=== PATIENT | female | born 1990 | race Caucasian/White ===

== ENCOUNTER 2017-10-05 00:55 | Emergency (ER) | payer MEDICAID, OTHER ==
[2017-10-05] MEDS ORDERED: NORMAL SALINE 1000 ML 1,000 ML IV ONE ×2 (02:41→02:42)
--- NOTE | 2017-10-05 02:43 | ER Document Report ---
ED GI/ - General Chief Complaint: Nausea/Vomiting Stated Complaint: VOMITING,DIARRHEA,ABDOMINAL CRAMPING,15 WKS Time Seen by Provider: 10/05/17 02:35 Notes: Patient is a 27-year-old female, at 15 weeks gestation by first trimester ultrasound, the [facility] emergency department for chief complaint of vomiting and diarrhea. Symptoms started at 6 PM, she states she has had persistent vomiting and diarrhea. She denies fever, she denies any obvious sick contacts, suspicious foods, or recent travel. She does report some abdominal cramping in the mid abdomen but denies any vaginal bleeding. She takes no daily medications. She denies any surgeries. TRAVEL OUTSIDE OF THE [place] IN LAST 30 DAYS: No - Related Data Allergies/Adverse Reactions: No Known Allergies Allergy (Verified 04/11/16 14:54) Past Medical History - General Information source: Patient - Social History Smoking Status: Never Smoker Frequency of alcohol use: None Drug Abuse: None Lives with: Family Family History: Reviewed & Not Pertinent - Medical History Medical History: Negative Surgical Hx: Negative - Immunizations Immunizations up to date: Yes Hx Diphtheria, Pertussis, Tetanus Vaccination: Yes Review of Systems - Review of Systems Constitutional: No symptoms reported EENT: No symptoms reported Cardiovascular: No symptoms reported Respiratory: No symptoms reported Gastrointestinal: See HPI Genitourinary: No symptoms reported Female Genitourinary: See HPI Musculoskeletal: No symptoms reported Skin: No symptoms reported Hematologic/Lymphatic: No symptoms reported Neurological/Psychological: No symptoms reported Physical Exam - Vital signs Vitals: Temp Pulse Resp BP Pulse Ox 98.1 F 88 20 121/69 98 10/05/17 02:07 10/05/17 02:07 10/05/17 02:07 10/05/17 02:07 10/05/17 02:07 Interpretation: Normal - General General appearance: Appears well In distress: None - HEENT Head: Normocephalic, Atraumatic Eyes: Normal Eyelashes: Normal Pupils: PERRL Mucous membranes: Dry Pharynx: Normal Neck: Normal - Respiratory Respiratory status: No respiratory distress Chest status: Nontender Breath sounds: Normal Chest palpation: Normal - Cardiovascular Rhythm: Regular. No: Tachycardia Heart sounds: Normal auscultation, S1 appreciated, S2 appreciated Murmur: No Normal capillary refill: Yes - Abdominal Inspection: Normal Distension: No distension Bowel sounds: Normal Tenderness: Tender - There is minimal generalized tenderness over the abdomen, nonspecific, no guarding, no rigidity, no rebound tenderness Organomegaly: No organomegaly - Back Back: Normal, Nontender - Extremities General upper extremity: Normal inspection, Nontender, Normal color, Normal ROM , Normal temperature General lower extremity: Normal inspection, Nontender, Normal color, Normal ROM , Normal temperature, Normal weight bearing. No: Leydi's sign - Neurological Neuro grossly intact: Yes Cognition: Normal Orientation: AAOx4 [place] Coma Scale Eye Opening: Spontaneous [place] Coma Scale Verbal: Oriented [place] Coma Scale Motor: Obeys Commands [place] Coma Scale Total: 15 Speech: Normal Motor strength normal: LUE, RUE, LLE, RLE Sensory: Normal - Psychological Associated symptoms: Normal affect, Normal mood - Skin Skin Temperature: Warm Skin Moisture: Dry Skin Color: Normal Course - Re-evaluation Re-evalutation: Patient is alert and well-appearing. She does have dry mucous membranes. Minimal generalized tenderness of the abdomen, no guarding, exam does not suggest acute abdomen. Chemistry is unremarkable, urine shows ketones and elevated specific gravity but no infection. Patient does not have any bleeding, ultrasound was performed at bedside showing very active baby with heart rate approximately in the 140s. Presentation is not consistent with abruption. After IV fluids patient states she feels much better, she is tolerating fluids by mouth, discussed workup. Patient states she is ready to go home. Patient declined nausea medication, she does not like taking medications especially while . Discussed follow-up and return precautions, patient states understanding and agreement. - Vital Signs Vital signs: Temp Pulse Resp BP Pulse Ox 98.1 F 88 20 121/69 98 10/05/17 02:07 10/05/17 02:07 10/05/17 02:07 10/05/17 02:07 10/05/17 02:07 - Laboratory Result Diagrams: 10/05/17 03:25 Laboratory results interpreted by me: 10/05/17 10/05/17 03:02 03:25 Creatinine 0.44 L Total Protein 5.8 L Urine Protein 30 H Urine Ketones 100 H Discharge - Discharge Clinical Impression: Vomiting and diarrhea, Dehydration Condition: Stable Disposition: HOME, SELF-CARE Additional Instructions: Your workup indicates dehydration but no other concerning abnormalities are noted. This is most likely viral and should pass. You have been rehydrated, you may need [id number]-[id number] remedies such as Pepcid for your stomach or Benadryl to help you relax or reduce nausea. Continue rehydration at home. Return if you worsen including returned or worsening vomiting, passing out, abdominal pain, fever, or any other concerning or worsening symptoms. Referrals: RAYMUNDO MACHUCA MD [Primary Care Provider] - Follow up as needed
[2017-10-05 03:41] LABS: AMORPHOUS SEDIMENT,URINE TRACE /HPF
[2017-10-05 03:53] LABS: APPEARANCE,URINE CLEAR; BILIRUBIN,URINE NEGATIVE (NEGATIVE); COLOR,URINE AMBER; GLUCOSE, URINE NEGATIVE (NEGATIVE); KETONES,URINE 100 mg/dL (NEGATIVE); LEUKOCYTE ESTERASE,URINE NEGATIVE (NEGATIVE); NITRITE,URINE NEGATIVE (NEGATIVE); PROTEIN,URINE 30 mg/dL (NEGATIVE); URINE SPECIFIC GRAVITY 1.034; UROBILINOGEN,URINE NEGATIVE mg/dL (<2.0)
[2017-10-05 04:06] LABS: ALANINE AMINOTRANSFERASE 28 U/L (9-52); ALBUMIN 3.5 g/dL (3.5-5.0); ALKALINE PHOSPHATASE 58 U/L (38-126); ANION GAP 10 (5-19); ASPARTATE AMINO TRANSFERASE 16 U/L (14-36); BILIRUBIN,DIRECT 0.1 mg/dL (0.0-0.4); BILIRUBIN,TOTAL 0.4 mg/dL (0.2-1.3); BLOOD UREA NITROGEN 12 mg/dL (7-20); CALCIUM 8.9 mg/dL (8.4-10.2); CARBON DIOXIDE 24 mmol/L (22-30); CHLORIDE 103 mmol/L (98-107); GLUCOSE 107 mg/dL (75-110); POTASSIUM 3.9 mmol/L (3.6-5.0); SODIUM 137.4 mmol/L (137-145); TOTAL PROTEIN 5.8 g/dL (6.3-8.2)
[2017-10-05 06:00] VITALS: BP 118/68
== END 2017-10-05 06:00 | disposition home or self-care (01) ==
LOC: ER 00:55
DX: O21.9 Vomiting of pregnancy, unspecified (principal); O26.892 Other specified pregnancy related conditions, second trimester; R19.7 Diarrhea, unspecified; R10.9 Unspecified abdominal pain; O99.282 Endocrine, nutritional and metabolic diseases complicating pregnancy, second trimester; E86.0 Dehydration; Z3A.15 15 weeks gestation of pregnancy; R10.817 Generalized abdominal tenderness
CPT/HCPCS: 99283; 96360; 96361; 36415; 80053; 81001; J7030

== ENCOUNTER 2017-10-09 09:09 | Observation (INO) | payer MEDICAID ==
[2017-10-09] MEDS ORDERED: DEXTROSE 50%-WATER 25 GM/50 ML DISP.SYRIN IV PRN ×2 (09:39)
[2017-10-09] MEDS ORDERED: GLUCAGON,HUMAN RECOMB 1 MG INJ SUBCUT PRN (09:39)
[2017-10-09] MEDS ORDERED: DEXTROSE 40% GEL 15 GM TUBE PO PRN ×2 (09:39)
[2017-10-09] MEDS ORDERED: ONDANSETRON HCL INJ/PF 4 MG/2 ML SDV IV PRN (09:40)
[2017-10-09 10:23] LABS: ABSOLUTE LYMPHOCYTES (AUTO) 1.3 10^3/uL (0.5-4.7); ABSOLUTE MONOCYTES (AUTO) 0.6 10^3/uL (0.1-1.4); ABSOLUTE NEUT (AUTO) 6.6 10^3/uL (1.7-8.2); BASOPHILS % (AUTO) 0.2 % (0-2); EOSINOPHILS % (AUTO) 0.5 % (0-6); HEMATOCRIT 39.6 % (36.0-47.0); HEMOGLOBIN 13.5 g/dL (12.0-15.5); LYMPHOCYTES % (AUTO) 14.8 % (13-45); MEAN CORPUSCULAR HEMOGLOBIN 29.3 pg (27.0-33.4); MEAN CORPUSCULAR HGB CONC 34.2 g/dL (32.0-36.0); MEAN CORPUSCULAR VOLUME 86 fl (80-97); MONOCYTES % (AUTO) 7.4 % (3-13); PLATELET COUNT 244 10^3/uL (150-450); RED BLOOD COUNT 4.61 10^6/uL (3.72-5.28); RED CELL DISTRIBUTION WIDTH 12.5 % (11.5-14.0); SEGMENTED NEUTROPHILS % (AUTO) 77.1 % (42-78); TOTAL CELLS COUNTED % (AUTO) 100 %; WHITE BLOOD COUNT 8.5 10^3/uL (4.0-10.5)
[2017-10-09 10:39] LABS: ALANINE AMINOTRANSFERASE 48 U/L (9-52); ALBUMIN 3.9 g/dL (3.5-5.0); ALKALINE PHOSPHATASE 70 U/L (38-126); ANION GAP 9 (5-19); ASPARTATE AMINO TRANSFERASE 18 U/L (14-36); BILIRUBIN,DIRECT 0.1 mg/dL (0.0-0.4); BILIRUBIN,TOTAL 0.3 mg/dL (0.2-1.3); BLOOD UREA NITROGEN 9 mg/dL (7-20); CALCIUM 9.7 mg/dL (8.4-10.2); CARBON DIOXIDE 24 mmol/L (22-30); CHLORIDE 103 mmol/L (98-107); GLUCOSE 82 mg/dL (75-110); POTASSIUM 4.1 mmol/L (3.6-5.0); TOTAL PROTEIN 6.5 g/dL (6.3-8.2)
[2017-10-09] MEDS ORDERED: RINGERS SOLUTION,LACTATED 500 ML IV ONE (11:00)
[2017-10-09] MEDS ORDERED: FAMOTIDINE 20 MG TABLET PO ONE (11:00)
[2017-10-09] MEDS: METOCLOPRAMIDE HCL 10 MG TABLET PO SCH ×3 (11:22→21:32)
[2017-10-09] MEDS: RINGERS SOLUTION,LACTATED 1,000 ML IV PRN (11:23)
[2017-10-09 11:57] LABS: APPEARANCE,URINE CLOUDY; BILIRUBIN,URINE NEGATIVE (NEGATIVE); CALCIUM OXALATE CRYSTALS,URINE MANY /HPF; COLOR,URINE AMBER; GLUCOSE, URINE NEGATIVE (NEGATIVE); KETONES,URINE 20 mg/dL (NEGATIVE); LEUKOCYTE ESTERASE,URINE SMALL (NEGATIVE); NITRITE,URINE NEGATIVE (NEGATIVE); PROTEIN,URINE NEGATIVE (NEGATIVE); URINE SPECIFIC GRAVITY 1.027; UROBILINOGEN,URINE NEGATIVE mg/dL (<2.0)
[2017-10-09] MEDS ORDERED: NORMAL SALINE 1000 ML 1,000 ML with THIAMINE HCL 100 MG, MVI, ADULT NO.1 WITH VIT K 10 ... IV ONE ×4 (12:00)
--- NOTE | 2017-10-09 15:52 | PDOC H&P ---
History of Present Illness Admission Date/PCP: 10/09/17 09:09 RAYMUNDO MACHUCA MD Patient complains of: nausea and vomiting History of Present Illness: SERG WRIGHT is a 27 year old female, she is 15 weeks and has had progressively worsening nausea and vomiting, she has failed out patient medical management. Past Medical History LMP: 06/29/2018 Gynecological Infection: No 1 Obstetrical History: current. G1 Medical History: None Cardiac Medical History: Reports: None Pulmonary Medical History: Reports: None EENT Medical History: Reports: None Neurological Medical History: Reports: None Endocrine Medical History: Reports: None Renal/ Medical History: Reports: None Malignancy Medical History: Reports: None GI Medical History: Reports: None Musculoskeltal Medical History: Reports: None Psychiatric Medical History: Reports: Depression Traumatic Medical History: Reports: None Infectious Medical History: Reports: None Past Surgical History Past Surgical History: Reports: None Social History Information Source: Patient Lives with: Spouse/Significant other Smoking Status: Never Smoker Frequency of Alcohol Use: None Hx Recreational Drug Use: No Drugs: None Hx Prescription Drug Abuse: No - Advance Directive Resuscitation Status: Full Code Family History Family History: Reviewed & Not Pertinent Parental Family History Reviewed: Yes Children Family History Reviewed: Yes Sibling(s) Family History Reviewed.: Yes Medication/Allergy Home Medications: Vit/Dha [ Multi + Dha Capsule] 1 tab PO DAILY 10/09/17 Allergies/Adverse Reactions: No Known Allergies Allergy (Verified 04/11/16 14:54) Physical Exam - Physical Exam Vital Signs: Temp Pulse Resp BP Pulse Ox 97.6 F 83 17 111/62 100 10/09/17 12:00 10/09/17 12:00 10/09/17 12:00 10/09/17 12:00 10/09/17 12:00 Intake & Output 10/08/17 10/09/17 10/10/17 06:59 06:59 06:59 Weight 95 kg General appearance: PRESENT: no acute distress Head exam: PRESENT: atraumatic Respiratory exam: PRESENT: clear to auscultation kallie Cardiovascular exam: PRESENT: RRR GI/Abdominal exam: PRESENT: normal bowel sounds Rectal exam: PRESENT: deferred Extremities exam: PRESENT: full ROM Neurological exam: PRESENT: alert, oriented to person, oriented to place, oriented to time, oriented to situation Psychiatric exam: PRESENT: appropriate affect Result Laboratory Results: 10/09/17 09:31 10/09/17 09:31 10/09/17 10/09/17 10/09/17 09:31 09:31 11:30 WBC 8.5 RBC 4.61 Hgb 13.5 Hct 39.6 MCV 86 MCH 29.3 MCHC 34.2 RDW 12.5 Plt Count 244 Seg Neutrophils % 77.1 Lymphocytes % 14.8 Monocytes % 7.4 Eosinophils % 0.5 Basophils % 0.2 Absolute Neutrophils 6.6 Absolute Lymphocytes 1.3 Absolute Monocytes 0.6 Absolute Eosinophils 0.0 Absolute Basophils 0.0 Sodium 136.0 L Potassium 4.1 Chloride 103 Carbon Dioxide 24 Anion Gap 9 BUN 9 Creatinine 0.48 L Est GFR ( Amer) > 60 Est GFR (Non-Af Amer) > 60 Glucose 82 Calcium 9.7 Total Bilirubin 0.3 AST 18 ALT 48 Alkaline Phosphatase 70 Total Protein 6.5 Albumin 3.9 Urine Color ANNA Urine Appearance CLOUDY Urine pH 5.0 Ur Specific [place] 1.027 Urine Protein NEGATIVE Urine Glucose (UA) NEGATIVE Urine Ketones 20 H Urine Blood NEGATIVE Urine Nitrite NEGATIVE Ur Leukocyte Esterase SMALL H Urine WBC (Auto) 5 Urine RBC (Auto) 5 Assessment & Plan - Diagnosis (1) Hyperemesis affecting , antepartum Is this a current diagnosis for this admission?: Yes Plan: anti emetics iv fluids (2) Dehydration Is this a current diagnosis for this admission?: Yes Plan: iv fluids (3) Vomiting and diarrhea Is this a current diagnosis for this admission?: Yes Plan: anti emetics - Time Time Spent: 30 to 50 Minutes Critical Time spent with patient: Less than 15 minutes Medications reviewed and adjusted accordingly: Yes Anticipated discharge: Home Within: within 48 hours - Inpatient Certification Based on my medical assessment, after consideration of the patient's comorbidities, presenting symptoms, or acuity I expect that the services needed warrant INPATIENT care.: Yes I certify that my determination is in accordance with my understanding of Medicare's requirements for reasonable and necessary INPATIENT services [42 CFR 412.3e].: Yes Medical Necessity: Need For IV Fluids - Plan Summary Plan Summary: IV fluids Antiemetics clear liquid diet, advance as tolerated fhts q shift reassess tomorrow
[2017-10-10] MEDS: METOCLOPRAMIDE HCL 10 MG TABLET PO SCH (07:59)
[2017-10-10] MEDS: RINGERS SOLUTION,LACTATED 1,000 ML IV PRN (09:27)
--- NOTE | 2017-10-10 09:56 | PDOC PROGRESS REPORT ---
Subjective-OB Progress Note for:: 10/10/17 Subjective: Doing alot better, thinks Jazmine is working but does not want totake forever, eating and more strength Physical Exam (OB) Vital Signs: Temp Pulse Resp BP Pulse Ox 98.1 F 74 18 123/70 100 10/10/17 08:20 10/10/17 08:20 10/10/17 08:20 10/10/17 08:20 10/10/17 08:20 Intake & Output 10/09/17 10/10/17 10/11/17 06:59 06:59 06:59 Weight 95 kg - Abdomen Hernia Present: No Objective-Diagnostic Laboratory: 10/09/17 09:31 10/09/17 09:31 10/09/17 10/09/17 10/09/17 09:31 09:31 11:30 WBC 8.5 RBC 4.61 Hgb 13.5 Hct 39.6 MCV 86 MCH 29.3 MCHC 34.2 RDW 12.5 Plt Count 244 Seg Neutrophils % 77.1 Lymphocytes % 14.8 Monocytes % 7.4 Eosinophils % 0.5 Basophils % 0.2 Absolute Neutrophils 6.6 Absolute Lymphocytes 1.3 Absolute Monocytes 0.6 Absolute Eosinophils 0.0 Absolute Basophils 0.0 Sodium 136.0 L Potassium 4.1 Chloride 103 Carbon Dioxide 24 Anion Gap 9 BUN 9 Creatinine 0.48 L Est GFR ( Amer) > 60 Est GFR (Non-Af Amer) > 60 Glucose 82 Calcium 9.7 Total Bilirubin 0.3 AST 18 ALT 48 Alkaline Phosphatase 70 Total Protein 6.5 Albumin 3.9 Urine Color ANNA Urine Appearance CLOUDY Urine pH 5.0 Ur Specific [place] 1.027 Urine Protein NEGATIVE Urine Glucose (UA) NEGATIVE Urine Ketones 20 H Urine Blood NEGATIVE Urine Nitrite NEGATIVE Ur Leukocyte Esterase SMALL H Urine WBC (Auto) 5 Urine RBC (Auto) 5 Assessment and Plan(PN) - Assessment and Plan (1) Hyperemesis affecting , antepartum Is this a current diagnosis for this admission?: Yes (2) Vomiting and diarrhea Is this a current diagnosis for this admission?: Yes (3) Dehydration Is this a current diagnosis for this admission?: Yes - Time Spent with Patient Time with patient: Less than 15 minutes Medications reviewed and adjusted accordingly: Yes - Disposition Anticipated Discharge: Home Within: Other - home today
[2017-10-10] MEDS ORDERED: PRENATAL VITAMIN W DHA CAPSULE PO SCH (10:00)
--- NOTE | 2017-10-10 10:01 | PDOC DISCHARGE SUMMARY ---
Final Diagnosis Discharge Date: 10/10/17 - Final Diagnosis (1) Hyperemesis affecting , antepartum Is this a current diagnosis for this admission?: Yes (2) Vomiting and diarrhea Is this a current diagnosis for this admission?: Yes Discharge Data - Discharge Medication Prescriptions: Metoclopramide HCl [Reglan 10 mg Tablet] 10 mg PO ACHS #30 tablet Home Medications: Metoclopramide HCl [Reglan 10 mg Tablet] 10 mg PO ACHS #30 tablet 10/10/17 Vit/Dha [ Multi + Dha Capsule] 1 cap PO DAILY capsule - Diagnosis Test Laboratory: Temp Pulse Resp BP Pulse Ox 98.1 F 74 18 123/70 100 10/10/17 08:20 10/10/17 08:20 10/10/17 08:20 10/10/17 08:20 10/10/17 08:20 10/09/17 09:31 RBC 4.61 Hgb 13.5 Hct 39.6 - Discharge information/Instructions Discharge Activity: Activity As Tolerated Discharge Diet: As Tolerated, Regular Disposition: HOME, SELF-CARE Follow up with: [facility] in: 1, Weeks
[2017-10-10 10:20] VITALS: BP 114/48
== END 2017-10-10 10:40 | disposition home or self-care (01) ==
LOC: 2N 09:09
PROVIDERS: ADMIT Student in an Organized Health Care Education/Training Program; ATTEND Student in an Organized Health Care Education/Training Program
DX: O21.1 Hyperemesis gravidarum with metabolic disturbance (principal); Z3A.15 15 weeks gestation of pregnancy; R19.7 Diarrhea, unspecified
CPT/HCPCS: 36415; 85025; 80053; 81001; J3490 ×6; J3411; J7030; J7120 ×2

== ENCOUNTER 2018-04-07 11:03 | Inpatient (IN) | payer MEDICAID ==
[~2018-04-07 11:03] MED LIST: PHENYLEPHRINE HCL INJ/PF 10 MG/1 ML SDV ONE
[2018-04-07 11:28] LABS: APPEARANCE,URINE CLOUDY; BILIRUBIN,URINE NEGATIVE (NEGATIVE); COLOR,URINE AMBER; GLUCOSE, URINE NEGATIVE (NEGATIVE); KETONES,URINE 20 mg/dL (NEGATIVE); LEUKOCYTE ESTERASE,URINE LARGE (NEGATIVE); NITRITE,URINE NEGATIVE (NEGATIVE); PROTEIN,URINE 30 mg/dL (NEGATIVE); URINE SPECIFIC GRAVITY 1.026
[2018-04-07] MEDS ORDERED: CEFAZOLIN SODIUM 3 GM in DEXTROSE 5%-WATER 50 ML IV PRN (11:29)
[2018-04-07] MEDS: RINGERS SOLUTION,LACTATED 1,000 ML IV PRN ×3 (11:41→21:03)
[2018-04-07 11:44] LABS: URINE AMPHETAMINES SCREEN NEGATIVE; URINE BARBITURATES SCREEN NEGATIVE; URINE BENZODIAZEPINES SCREEN NEGATIVE; URINE COCAINE SCREEN NEGATIVE; URINE MARIJUANA (THC) SCREEN NEGATIVE; URINE METHADONE SCREEN NEGATIVE; URINE PHENCYCLIDINE SCREEN NEGATIVE
[2018-04-07 12:07] LABS: ABSOLUTE LYMPHOCYTES (AUTO) 1.4 10^3/uL (0.5-4.7); ABSOLUTE MONOCYTES (AUTO) 0.5 10^3/uL (0.1-1.4); ABSOLUTE NEUT (AUTO) 8.7 10^3/uL (1.7-8.2); BASOPHILS % (AUTO) 0.2 % (0-2); EOSINOPHILS % (AUTO) 0.3 % (0-6); HEMATOCRIT 33.4 % (36.0-47.0); HEMOGLOBIN 11.4 g/dL (12.0-15.5); LYMPHOCYTES % (AUTO) 12.8 % (13-45); MEAN CORPUSCULAR HEMOGLOBIN 28.2 pg (27.0-33.4); MEAN CORPUSCULAR HGB CONC 34.2 g/dL (32.0-36.0); MEAN CORPUSCULAR VOLUME 82 fl (80-97); MONOCYTES % (AUTO) 4.9 % (3-13); PLATELET COUNT 247 10^3/uL (150-450); RED BLOOD COUNT 4.05 10^6/uL (3.72-5.28); RED CELL DISTRIBUTION WIDTH 14.4 % (11.5-14.0); SEGMENTED NEUTROPHILS % (AUTO) 81.8 % (42-78); TOTAL CELLS COUNTED % (AUTO) 100 %; WHITE BLOOD COUNT 10.6 10^3/uL (4.0-10.5)
[2018-04-07] MEDS ORDERED: CITRIC ACID/SODIUM CITRATE ORAL SOLN 15 ML UDCUP PO ONE (13:10)
[2018-04-07 14:04] LABS: APPEARANCE,URINE TURBID; BILIRUBIN,URINE NEGATIVE (NEGATIVE); COLOR,URINE YELLOW; GLUCOSE, URINE NEGATIVE (NEGATIVE); KETONES,URINE 20 mg/dL (NEGATIVE); LEUKOCYTE ESTERASE,URINE LARGE (NEGATIVE); NITRITE,URINE NEGATIVE (NEGATIVE); PROTEIN,URINE 30 mg/dL (NEGATIVE); URINE SPECIFIC GRAVITY 1.027
[2018-04-07] MEDS ORDERED: CEFAZOLIN 1 GM/D5W RTU 1 GM/50 ML RTUPB IV ONE (15:17)
[2018-04-07] MEDS ORDERED: CITRIC ACID/SODIUM CITRATE ORAL SOLN 15 ML UDCUP ONE (15:17)
[2018-04-07] MEDS ORDERED: OXYTOCIN 10 UNIT/ML VIAL ONE (15:33)
[2018-04-07] MEDS ORDERED: PROPOFOL INJ 200 MG/20 ML VIAL IV ONE (15:33)
[2018-04-07] MEDS ORDERED: EPHEDRINE SULFATE INJ 50 MG/1 ML AMPULE ONE (15:34)
[2018-04-07] MEDS ORDERED: MIDAZOLAM 2 MG/2 ML INJ ONE (15:34)
[2018-04-07] MEDS ORDERED: FENTANYL CITRATE INJ/PF 100 MCG/2 ML AMPUL ONE (15:34)
[2018-04-07] MEDS ORDERED: BUPIVACAINE HCL/DEX-WATER/PF 15 MG/2 ML AMPULE ONE (15:34)
[2018-04-07] MEDS ORDERED: CEFAZOLIN 2 GM/D5W RTU 2 GM/50 ML RTUPB IV ONE (15:54)
[2018-04-07] MEDS ORDERED: SIMETHICONE 80 MG TAB.CHEW PO PRN (16:59)
[2018-04-07] MEDS ORDERED: ACETAMINOPHEN 1,000 MG/100 ML RTUPB IV PRN (16:59)
[2018-04-07] MEDS ORDERED: OXYTOCIN/NORMAL SALINE 20 UNIT/1,000 ML RTUINJ IV PRN (16:59)
[2018-04-07] MEDS ORDERED: OXYCODONE-ACETAMINOPHEN 5-325 MG TABLET PO PRN (16:59)
[2018-04-07] MEDS ORDERED: ACETAMINOPHEN 325 MG TABLET PO PRN (16:59)
[2018-04-07] MEDS ORDERED: MEASLES,MUMPS&RUBELLA VACC/PF 0.5 ML VIAL SUBCUT PRN (16:59)
[2018-04-07] MEDS ORDERED: HYDROMORPHONE HCL INJ/PF 2 MG/ML AMPULE IV PRN (16:59)
[2018-04-07] MEDS ORDERED: PROMETHAZINE HCL INJ 25 MG/1 ML VIAL IV PRN (16:59)
[2018-04-07] MEDS ORDERED: DIPH/PERTUSS(ACELL)/TETANUS VAC/PF 0.5 ML SYR (>=10YO) IM PRN (16:59)
--- NOTE | 2018-04-07 17:07 | Brief Operative Note ---
BRIEF OPERATIVE REPORT DATE OF SURGERY: 04/07/18 TIME OF SURGERY: 16:00 PREOPERATIVE DIAGNOSIS: 40+2ega, , Macrosomia POSTOPERATIVE DIAGNOSIS: CHIKA - delivered SURGEON: JACKLYN GILBERT FINDINGS: VMI delivered at 1610, weight 9#5oz, normal bilateral tubes/ovaries, normal uterus. 3 grams Ancef given preop. UOP 150ml. 1000ml COMPLICATIONS: None ESTIMATED BLOOD LOSS: 1150 TISSUE REMOVED OR ALTERED: placenta and cord - not sent to pathology TECHNICAL PROCEDURE: Primary section
[2018-04-07] MEDS ORDERED: OXYTOCIN/NORMAL SALINE 20 UNIT/1,000 ML RTUINJ ONE (17:09)
[2018-04-07] MEDS ORDERED: ACETAMINOPHEN 1,000 MG/100 ML RTUPB IV ONE (17:40)
--- NOTE | 2018-04-07 18:17 | Delivery Summary ---
Del Sum A-C Datetime Report Generated by CPN: 04/07/2018 18:16 DELIVERY PERSONNEL DELIVERY PERSONNEL: [id number] Delivery Doctor:: Jayla Olson MD Anesthesiologist:: Julien Owusu MD CAMP ASSISTANT:: Bibi Kiser CRNA Labor and Delivery Nurse:: Lynn Goode RNpigment presser Nurse:: Michael Vargas RN Roughener:: Karie Figueroa RN R Programmer:: Dr. Mynor Ochoa Nursery Nurse:: Jalyn Valencia RN Nursery Nurse:: DEIDRE Helm Soldering Inspector/PROFESSOR OF MUSIC: Cass Jain CST Soldering Inspector/PROFESSOR OF MUSIC: Jaylene Duke, ST MATERNAL INFORMATION Delivery Anesthesia: Spinal Medications After Delivery: Pitocin Drip 20 Units/1000ml NSS Maternal Complications: None LABOR SUMMARY EDC: 04/05/2018 00:00 No. Babies in Womb: 1 Attempted: No Labor Anesthesia: None LABOR INFORMATION Reason for Induction: Not Applicable Group B Beta Strep: Negatvie Steroids Given: None Reason Steroids Not Administered: Not Applicable MEMBRANES Membranes Rupture Method: Artificial Rupture of Membranes: 04/07/2018 16:10 Length of Rupture (hr): 0.00 Amniotic Fluid Color: Clear Amniotic Fluid Amount: Moderate Amniotic Fluid Odor: None STAGES OF LABOR Stage 3 hr: 0 Stage 3 min: 1 VAGINAL DELIVERY Episiotomy: None Laceration #1: None Laceration Extension #1: N/A Laceration Repair: Not Applicable Sponge Count Correct: N/A CSECTION DELIVERY Primary Indication: Macrosomia Secondary Indication: N/A CSection Urgency: Scheduled CSection Incidence: Primary Labor: N/A Elective: Elective CSection Incision: Lower Uterine Transverse BABY A INFORMATION Infant Delivery Date/Time: 04/07/2018 16:10 Method of Delivery: Born in Route : No : N/A Forceps: N/A Vacuum Extraction: N/A Shoulder Dystocia : No PRESENTATION/POSITION BABY A Presentation: Cephalic Cephalic Presentation: Vertex Breech Presentation: N/A PLACENTA INFORMATION BABY A Placenta Delivery Time : 04/07/2018 16:11 Placenta Method of Delivery: Manual Removal Placenta Status: Delivered SCORES BABY A Heart Rate 1 min: >100 bpm Resp Effort 1 min: Slow, Irregular Reflex Irritability 1 min: Cough or Sneeze or Pulls Away Muscle Tone 1 min: Active Motion Color 1 min: Blue/Pale Resuscitation Effort 1 min: N/A SCORE 1 MIN: 7 Heart Rate 5 min: >100 bpm Resp Effort 5 min: Good Cry Reflex Irritability 5 min: Cough or Sneeze or Pulls Away Muscle Tone 5 min: Active Motion Color 5 min: Body [place], Extremities Blue SCORE 5 MIN: 9 INFORMATION BABY A Gestational Age at Delivery: 40.2 Gestational Status: Full Term- 39- 40.6 Weeks Infant Outcome : Liveborn Infant Condition : Stable Sex: Male IDENTIFICATION BABY A Infant Verification Date/Time: 04/07/2018 16:11 ID Band Number: [id number] Mother's Name Verified: Yes RN Verifying Infant: Tatum Vargas, RM _ A. Geetha, AUGUSTINEAII WEIGHT/LENGTH BABY A Birthweight (gm): 4220 Infant Weight (lb): 9 Infant Weight (oz): 5 Length (in): 21.50 Length (cm): 54.61 CORD INFORMATION BABY A No. Cord Vessels: 3 Nuchal Cord : N/A Cord Blood Taken: Yes-For Storage (Mom's Blood type +) ASSESSMENT BABY A Skin to Skin: Yes Skin to Skin Time (min): 5
[2018-04-07] MEDS ORDERED: KETOROLAC TROMETHAMINE INJ/PF 30 MG/1 ML SDV ONE (18:34)
[2018-04-07] MEDS: KETOROLAC TROMETHAMINE INJ/PF 30 MG/1 ML SDV IV SCH (18:36)
[2018-04-07 18:40] LABS: HEMATOCRIT 31.6 % (36.0-47.0); HEMOGLOBIN 10.8 g/dL (12.0-15.5); MEAN CORPUSCULAR HEMOGLOBIN 28.4 pg (27.0-33.4); MEAN CORPUSCULAR HGB CONC 34.1 g/dL (32.0-36.0); MEAN CORPUSCULAR VOLUME 83 fl (80-97); PLATELET COUNT 240 10^3/uL (150-450); RED CELL DISTRIBUTION WIDTH 14.6 % (11.5-14.0)
--- NOTE | 2018-04-07 18:54 | PDOC CONSULTATION ---
Consultation Consult Date: 04/07/18 Attending physician:: JACKLYN GILBERT Consult reason:: Frequent premature ventricular contractions during general anesthesia for a . History of Present Illness Admission Date/PCP: 04/07/18 11:09 JACKLYN GILBERT MD Patient complains of: Frequent PVCs observed by anesthesia and attending physicians during general anesthetic for the performance of a section. History of Present Illness: AMANDA WRIGHT is a 27 year old 1 para 1 AB 0 white female who was taken to surgery for the delivery of her son via section due to macrosomia at 40-2/7 weeks gestation. During her surgical course she was noted to have frequent PVCs by the batch tank controller and the obstetric surgeon. Due to the aberrance of the arrhythmia a consultation was sought with the hospitalist service to evaluate the patient for any necessary treatment or intervention. Amanda did not experience any symptoms of palpitations, dizziness, syncope, lightheadedness, generalized weakness or mental confusion during the recent weeks for that matter at any time in her life. Her past medical history is positive only for asthma as a child and her family medical history is essentially negative and noncontributory. Amanda has been completely unaffected during her postoperative phase and is very happily breast-feeding and playing with her baby at the time of my evaluation. Past Medical History Cardiac Medical History: Denies: DVT, Hypertension, Pulmonary Embolism, Heart Murmur Pulmonary Medical History: Reports: Asthma - As a child, no asthma symptoms since puberty. Denies: Intubation - None prior to today, Respiratory Failure EENT Medical History: Reports: None Neurological Medical History: Denies: Hemorrhagic CVA, Ischemic CVA, Migraine, Seizures Endocrine Medical History: Reports: Obesity Denies: Diabetes Mellitus Type 1, Diabetes Mellitus Type 2, Gestational Diabetes, Hyperthyroidism, Hypothyroidism Renal/ Medical History: Reports: None Malignancy Medical History: Reports: None GI Medical History: Denies: Crohn's Disease, Peptic Ulcer Disease, Ulcerative Colitis Musculoskeltal Medical History: Denies: Arthritis, Gout Skin Medical History: Denies: Eczema, Psoriasis Psychiatric Medical History: Reports: Depression Denies: Alcohol Dependency, Attention Deficit Hyperactivity Disorder, Bipolar Disorder, General Anxiety Disorder, Substance Abuse, Tobacco Dependency Traumatic Medical History: Reports: None Hematology: Reports: None Infectious Medical History: Reports: None Past Surgical History Past Surgical History: Reports: Section - Performed just prior to my evaluation Social History Information Source: Patient Lives with: Family Smoking Status: Never Smoker Frequency of Alcohol Use: None Hx Recreational Drug Use: No Drugs: None Hx Prescription Drug Abuse: No Family History Family History: Other - Systemic lupus erythematosus. denies: CAD, DM, Hyperlipidemia, Hypertension, Malignancy, Thyroid Disfunction Parental Family History Reviewed: Yes Children Family History Reviewed: NA Sibling(s) Family History Reviewed.: Yes Medication/Allergy Home Medications: Vit/Dha [ Multi + Dha Capsule] 1 cap PO DAILY capsule Docosahexanoic Acid [Dha] 1 cap PO DAILY 04/07/18 Allergies/Adverse Reactions: No Known Allergies Allergy (Verified 04/07/18 11:13) Review of Systems Constitutional: ABSENT: anorexia, chills, fever(s), weakness Eyes: ABSENT: visual disturbances, other - Ocular pain Ears: ABSENT: hearing changes, other - Ear pain Nose, Mouth, and Throat: ABSENT: mouth pain, sore throat, vertigo Cardiovascular: ABSENT: chest pain, dyspnea on exertion, edema, orthropnea, palpitations Respiratory: ABSENT: cough, dyspnea, hemoptysis Gastrointestinal: PRESENT: constipation, heartburn. ABSENT: abdominal pain, bloating, diarrhea, dysphagia, hematemesis, hematochezia, melena, nausea, vomiting Genitourinary: ABSENT: dysuria, hematuria, nocturia Musculoskeletal: ABSENT: back pain, deformity, joint swelling, muscle weakness Integumentary: ABSENT: lesions, pruritus, rash Neurological: ABSENT: confusion, convulsions, dizziness, focal weakness, frequent falls, memory loss, syncope, vertigo, weakness Psychiatric: PRESENT: depression. ABSENT: anxiety, hallucinations Endocrine: ABSENT: cold intolerance, heat intolerance, polydipsia, polyphagia, polyuria Hematologic/Lymphatic: ABSENT: easy bleeding, easy bruising Physical Exam Vital Signs: Intake & Output 04/06/18 04/07/18 04/08/18 06:59 06:59 06:59 Intake Total 471 Balance 471 Weight 116.1 kg General appearance: PRESENT: no acute distress, cooperative Head exam: PRESENT: atraumatic, normocephalic Eye exam: PRESENT: conjunctiva pink, EOMI. ABSENT: conjunctival injection, nystagmus, periorbital swelling, scleral icterus Ear exam: PRESENT: normal external ear exam. ABSENT: bleeding, drainage Mouth exam: PRESENT: moist, tongue midline Neck exam: ABSENT: JVD, thyromegaly, tracheal deviation Respiratory exam: PRESENT: clear to auscultation kallie, symmetrical, unlabored Cardiovascular exam: PRESENT: RRR, +S1 - Normal, +S2 - Normal. ABSENT: bradycardia, clicks, diastolic murmur, gallop, rubs, systolic murmur, tachycardia, other Pulses: PRESENT: normal carotid pulses, normal radial pulses, normal femoral pulses, normal dorsalis pedis pul Vascular exam: PRESENT: normal capillary refill. ABSENT: pallor GI/Abdominal exam: PRESENT: normal bowel sounds, soft, tenderness - Moderate tenderness in the midline area of her surgical incision Rectal exam: PRESENT: deferred Extremities exam: ABSENT: joint swelling, pedal edema Musculoskeletal exam: PRESENT: full ROM, normal inspection Neurological exam: PRESENT: alert, awake, oriented to person, oriented to place , oriented to time, oriented to situation, CN II-XII grossly intact. ABSENT: motor sensory deficit Psychiatric exam: PRESENT: appropriate affect, normal mood Skin exam: PRESENT: normal color - Moderate melasma noted.. ABSENT: jaundice, rash, urticaria Results Laboratory Results: 04/07/18 11:45 04/07/18 04/07/18 04/07/18 11:13 11:13 11:45 WBC 10.6 H RBC 4.05 Hgb 11.4 L Hct 33.4 L MCV 82 MCH 28.2 MCHC 34.2 RDW 14.4 H Plt Count 247 Seg Neutrophils % 81.8 H Lymphocytes % 12.8 L Monocytes % 4.9 Eosinophils % 0.3 Basophils % 0.2 Absolute Neutrophils 8.7 H Absolute Lymphocytes 1.4 Absolute Monocytes 0.5 Absolute Eosinophils 0.0 Absolute Basophils 0.0 Urine Color ANNA YELLOW Urine Appearance CLOUDY TURBID Urine pH 5.0 5.0 Ur Specific [place] 1.026 1.027 Urine Protein 30 H 30 H Urine Glucose (UA) NEGATIVE NEGATIVE Urine Ketones 20 H 20 H Urine Blood NEGATIVE NEGATIVE Urine Nitrite NEGATIVE NEGATIVE Ur Leukocyte Esterase LARGE H LARGE H Urine WBC (Auto) 38 Urine RBC (Auto) 2 Blood Type Antibody Screen 04/07/18 11:45 WBC RBC Hgb Hct MCV MCH MCHC RDW Plt Count Seg Neutrophils % Lymphocytes % Monocytes % Eosinophils % Basophils % Absolute Neutrophils Absolute Lymphocytes Absolute Monocytes Absolute Eosinophils Absolute Basophils Urine Color Urine Appearance Urine pH Ur Specific [place] Urine Protein Urine Glucose (UA) Urine Ketones Urine Blood Urine Nitrite Ur Leukocyte Esterase Urine WBC (Auto) Urine RBC (Auto) Blood Type A NEGATIVE Antibody Screen NEGATIVE EKG Comments: EKG shows a normal sinus rhythm at 71 bpm. No ectopy is noted. No evidence of acute ischemia or cardiac injury is noted. Assessment & Plan - Diagnosis (1) Ventricular premature beats seen on cardiac cath technologist Is this a current diagnosis for this admission?: Yes Plan: Patient's EKG is currently showing normal sinus rhythm. An acute arrhythmia evaluation will be performed. This will include multiple laboratory evaluations as well as overnight cardiac monitoring on telemetry and EKG which is already been obtained by Dr. Gilbert. Further evaluation will be provided as appropriate and I will follow-up with patient tomorrow to report all findings. (2) Delivery by section of full-term Is this a current diagnosis for this admission?: Yes Plan: Dr. Gilbert will provide her most excellent postoperative/ care throughout the hospital course. - Time Time Spent: 50 to 70 Minutes Anticipated discharge: Home
[2018-04-07 19:00] LABS: ANION GAP 6 (5-19); BLOOD UREA NITROGEN 10 mg/dL (7-20); CALCIUM 8.7 mg/dL (8.4-10.2); CARBON DIOXIDE 24 mmol/L (22-30); CHLORIDE 105 mmol/L (98-107); GLUCOSE 75 mg/dL (75-110); SODIUM 135.1 mmol/L (137-145)
[2018-04-07 19:54] LABS: CREATINE KINASE MB 0.92 ng/mL (<4.55)
[2018-04-07 19:58] LABS: TROPONIN I < 0.012 ng/mL
[2018-04-07] MEDS: DOCUSATE SODIUM 100 MG CAPSULE PO SCH (20:32)
[2018-04-07] MEDS: OXYCODONE-ACETAMINOPHEN 5-325 MG TABLET PO PRN (21:03)
[2018-04-08 01:39] LABS: CREATINE KINASE MB 0.97 ng/mL (<4.55)
[2018-04-08 01:42] LABS: TROPONIN I < 0.012 ng/mL
--- NOTE | 2018-04-08 02:05 | Operative Report ---
Operative Report DATE OF SURGERY: 04/07/18 PREOPERATIVE DIAGNOSIS: 40+2ega, , Macrosomia POSTOPERATIVE DIAGNOSIS: CHIKA - delivered OPERATION: Primary section SURGEON: JACKLYN GILBERT ANESTHESIA: Spinal TISSUE REMOVED OR ALTERED: placenta and cord - not sent to pathology COMPLICATIONS: none ESTIMATED BLOOD LOSS: 1150 INTRAOPERATIVE FINDINGS: VMI delivered at 1610, weight 9#5oz, normal bilateral tubes/ovaries, normal uterus. 3 grams Ancef given preop. UOP 150ml. 1000ml PROCEDURE: Anesthesia provider: [Bibi Woodard BAND MASTER] Urine output: [150ml] IV fluids: [1000ml] Complications: [None] Indications: [27yo at 40+2ega presents for scheduled primary section due to suspected macrosomia. The estimated weight last week was 9 #14oz and now on thursday 04/05 the estimated weight was 10#14oz (4923g). Reviewed risks of 5000g delivery attempt (including shoulder dystocia, developmental delay, requiring section during labor for arrest of descent and the complications that can occur) and reviewed recommendations for section. She desires to proceed with planned procedure.] Procedure: The patient was taken to the operating room where spinal anesthesia was obtained and found to be adequate. She was then prepped and draped in the normal sterile fashion and placed in the dorsal supine position with a leftward tilt. A Pfannenstiel skin incision was then made and carried through to the underlying layers of the fascia with the scalpel. The fascia was incised in the midline and the incision extended laterally with the [place] scissors. The superior aspect of the fascial incision was then grasped with amy clamps elevated and the underlying rectus muscles dissected off [bluntly]. Attention was then turned to the inferior aspect of the fascial incision which in a similar fashion was grasped, tented up with Amy clamps, and the rectus muscles dissected off [bluntly]. The rectus muscles were then in the midline and the peritoneum at the amount identified and entered [bluntly]. The peritoneal incision was then extended superiorly and inferiorly with good visualization of the bladder. The bladder blade was inserted and the vesicouterine peritoneum identified grasped with Wallisian pickups and entered sharply with the Metzenbaum scissors. This incision was then extended laterally with the Metzenbaum scissors and a bladder flap created digitally. The bladder blade was then reinserted and the lower uterine segment incised in a transverse fashion with the scalpel. The uterine incision was then extended bluntly. The bladder blade was removed and the 's head was delivered from cephalic presentation atraumatically. The nose and mouth were suctioned and the cord doubly clamped and cut. And the infant was handed off to waiting pediatricians. The placenta was then delivered spontaneously and the uterus exteriorized and cleared of all clots and debris. The uterine incision was then repaired with 1- 0 Vicryl in a running locked fashion. A second layer of the same suture was used to obtain hemostasis via imbrication of the initial layer. The bladder flap was then repaired with 3-0 chromic in a running fashion. The uterus was returned to the patient's abdomen and Interceed was placed overlying the uterine incision to prevent adhesions. The gutters were cleared of all clots and debris. All operative sites were noted to be hemostatic. The fascia was reapproximated with 0 Vicryl in a running fashion from each lateral edge to the midline. The skin was closed with 3-0 Monocryl in a running subcuticular fashion with overlying Dermabond for additional dressing as well as wound closure. The patient tolerated the procedure well. Sponge lap needle and instrument counts are correct times 2. 3 g of Ancef were given prior to skin incision. The patient was taken to the recovery area awake and in stable condition.
[2018-04-08] MEDS: KETOROLAC TROMETHAMINE INJ/PF 30 MG/1 ML SDV IV SCH ×2 (02:07→09:09)
[2018-04-08] MEDS: OXYCODONE-ACETAMINOPHEN 5-325 MG TABLET PO PRN ×5 (05:06→23:16)
[2018-04-08] MEDS: RINGERS SOLUTION,LACTATED 1,000 ML IV PRN (06:34)
[2018-04-08] MEDS ORDERED: MAGNESIUM SULFATE INJ 8 MEQ/2 ML IV ONE (07:48)
[2018-04-08 08:17] LABS: HEMATOCRIT 28.9 % (36.0-47.0); HEMOGLOBIN 9.9 g/dL (12.0-15.5); MEAN CORPUSCULAR HEMOGLOBIN 28.4 pg (27.0-33.4); MEAN CORPUSCULAR HGB CONC 34.2 g/dL (32.0-36.0); MEAN CORPUSCULAR VOLUME 83 fl (80-97); PLATELET COUNT 192 10^3/uL (150-450); RED BLOOD COUNT 3.47 10^6/uL (3.72-5.28); RED CELL DISTRIBUTION WIDTH 14.2 % (11.5-14.0)
[2018-04-08 08:34] LABS: ALANINE AMINOTRANSFERASE 40 U/L (9-52); ALBUMIN 2.4 g/dL (3.5-5.0); ALKALINE PHOSPHATASE 107 U/L (38-126); ANION GAP 5 (5-19); ASPARTATE AMINO TRANSFERASE 26 U/L (14-36); BILIRUBIN,DIRECT 0.4 mg/dL (0.0-0.4); BILIRUBIN,TOTAL 0.5 mg/dL (0.2-1.3); BLOOD UREA NITROGEN 8 mg/dL (7-20); CALCIUM 8.5 mg/dL (8.4-10.2); CARBON DIOXIDE 23 mmol/L (22-30); CHLORIDE 108 mmol/L (98-107); CREATINE KINASE 80 U/L (30-135); GLUCOSE 105 mg/dL (75-110); POTASSIUM 3.9 mmol/L (3.6-5.0); SODIUM 136.3 mmol/L (137-145); TOTAL PROTEIN 4.7 g/dL (6.3-8.2)
--- NOTE | 2018-04-08 09:08 | EKG REPORT ---
SEVERITY:- NORMAL ECG - SINUS RHYTHM : Confirmed by: Davon Chiu 08-Apr-2018 09:07:38
[2018-04-08] MEDS: PRENATAL VITAMIN W DHA CAPSULE PO SCH (09:09)
[2018-04-08] MEDS: DOCUSATE SODIUM 100 MG CAPSULE PO SCH ×2 (09:09→18:34)
--- NOTE | 2018-04-08 09:09 | EKG REPORT ---
SEVERITY:- NORMAL ECG - SINUS RHYTHM : Confirmed by: Davon Chiu 08-Apr-2018 09:07:46
[2018-04-08 09:18] LABS: CREATINE KINASE MB 1.03 ng/mL (<4.55)
[2018-04-08 09:24] LABS: TROPONIN I < 0.012 ng/mL
--- NOTE | 2018-04-08 10:07 | PDOC PROGRESS REPORT ---
Subjective-OB Progress Note for:: 04/08/18 Subjective: Doing well, , brady out, pain under control, taking liquids and food without nausea Physical Exam (OB) Vital Signs: Temp Pulse Resp BP Pulse Ox 98.1 F 88 14 117/60 100 04/08/18 08:05 04/08/18 08:05 04/08/18 08:05 04/08/18 08:05 04/08/18 08:05 Intake & Output 04/07/18 04/08/18 04/09/18 06:59 06:59 06:59 Intake Total 1471 Output Total 500 Balance 971 Weight 116.1 kg - Dressing Removed: No Incision: Dressing, Well Approximated Closure Type: Steri-Strips - Lochia Lochia Amount: Scant < 10 ml Lochia Color: Rubra/Red - Abdomen Description: Tender, Soft Hernia Present: No Fundal Description: Firm, Midline Fundal Height: u/u - u/2 Objective-Diagnostic Laboratory: 04/08/18 07:01 04/08/18 07:01 04/07/18 04/07/18 04/07/18 11:13 11:13 11:45 WBC 10.6 H RBC 4.05 Hgb 11.4 L Hct 33.4 L MCV 82 MCH 28.2 MCHC 34.2 RDW 14.4 H Plt Count 247 Seg Neutrophils % 81.8 H Lymphocytes % 12.8 L Monocytes % 4.9 Eosinophils % 0.3 Basophils % 0.2 Absolute Neutrophils 8.7 H Absolute Lymphocytes 1.4 Absolute Monocytes 0.5 Absolute Eosinophils 0.0 Absolute Basophils 0.0 Sodium Potassium Chloride Carbon Dioxide Anion Gap BUN Creatinine Est GFR ( Amer) Est GFR (Non-Af Amer) Glucose Calcium Magnesium Total Bilirubin AST ALT Alkaline Phosphatase Total Protein Albumin TSH Urine Color ANNA YELLOW Urine Appearance CLOUDY TURBID Urine pH 5.0 5.0 Ur Specific [place] 1.026 1.027 Urine Protein 30 H 30 H Urine Glucose (UA) NEGATIVE NEGATIVE Urine Ketones 20 H 20 H Urine Blood NEGATIVE NEGATIVE Urine Nitrite NEGATIVE NEGATIVE Ur Leukocyte Esterase LARGE H LARGE H Urine WBC (Auto) 38 Urine RBC (Auto) 2 Blood Type Antibody Screen 04/07/18 04/07/18 04/07/18 11:45 18:33 18:33 WBC RBC Hgb Hct MCV MCH MCHC RDW Plt Count Seg Neutrophils % Lymphocytes % Monocytes % Eosinophils % Basophils % Absolute Neutrophils Absolute Lymphocytes Absolute Monocytes Absolute Eosinophils Absolute Basophils Sodium 135.1 L Potassium 4.0 Chloride 105 Carbon Dioxide 24 Anion Gap 6 BUN 10 Creatinine 0.51 L Est GFR ( Amer) > 60 Est GFR (Non-Af Amer) > 60 Glucose 75 Calcium 8.7 Magnesium 1.5 L Total Bilirubin AST ALT Alkaline Phosphatase Total Protein Albumin TSH 1.21 Urine Color Urine Appearance Urine pH Ur Specific [place] Urine Protein Urine Glucose (UA) Urine Ketones Urine Blood Urine Nitrite Ur Leukocyte Esterase Urine WBC (Auto) Urine RBC (Auto) Blood Type A NEGATIVE Antibody Screen NEGATIVE 04/07/18 04/08/18 04/08/18 18:33 07:01 07:01 WBC 13.0 H 12.0 H RBC 3.80 3.47 L Hgb 10.8 L 9.9 L Hct 31.6 L 28.9 L MCV 83 83 MCH 28.4 28.4 MCHC 34.1 34.2 RDW 14.6 H 14.2 H Plt Count 240 192 Seg Neutrophils % Lymphocytes % Monocytes % Eosinophils % Basophils % Absolute Neutrophils Absolute Lymphocytes Absolute Monocytes Absolute Eosinophils Absolute Basophils Sodium 136.3 L Potassium 3.9 Chloride 108 H Carbon Dioxide 23 Anion Gap 5 BUN 8 Creatinine 0.52 Est GFR ( Amer) > 60 Est GFR (Non-Af Amer) > 60 Glucose 105 Calcium 8.5 Magnesium 1.6 Total Bilirubin 0.5 AST 26 ALT 40 Alkaline Phosphatase 107 Total Protein 4.7 L Albumin 2.4 L TSH Urine Color Urine Appearance Urine pH Ur Specific [place] Urine Protein Urine Glucose (UA) Urine Ketones Urine Blood Urine Nitrite Ur Leukocyte Esterase Urine WBC (Auto) Urine RBC (Auto) Blood Type Antibody Screen 04/08/18 08:14 WBC RBC Hgb Hct MCV MCH MCHC RDW Plt Count Seg Neutrophils % Lymphocytes % Monocytes % Eosinophils % Basophils % Absolute Neutrophils Absolute Lymphocytes Absolute Monocytes Absolute Eosinophils Absolute Basophils Sodium Potassium Chloride Carbon Dioxide Anion Gap BUN Creatinine Est GFR ( Amer) Est GFR (Non-Af Amer) Glucose Calcium Magnesium Total Bilirubin AST ALT Alkaline Phosphatase Total Protein Albumin TSH Urine Color Urine Appearance Urine pH Ur Specific [place] Urine Protein Urine Glucose (UA) Urine Ketones Urine Blood Urine Nitrite Ur Leukocyte Esterase Urine WBC (Auto) Urine RBC (Auto) Blood Type A NEGATIVE Antibody Screen 04/07/18 04/07/18 04/08/18 19:12 19:12 01:00 Creatine Kinase 120 76 CK-MB (CK-2) 0.92 Troponin I < 0.012 04/08/18 04/08/18 04/08/18 01:00 07:01 07:01 Creatine Kinase 80 CK-MB (CK-2) 0.97 1.03 Troponin I < 0.012 < 0.012 Assessment and Plan(PN) - Assessment and Plan (1) Macrosomia affecting management of mother Qualifiers: Fetus number: single or unspecified fetus Trimester: third trimester Qualified Code(s): O36.63X0 - Maternal care for excessive growth, third trimester, not applicable or unspecified Is this a current diagnosis for this admission?: Yes (2) Delivery by section of full-term infant Is this a current diagnosis for this admission?: Yes - Time Spent with Patient Time with patient: Less than 15 minutes Medications reviewed and adjusted accordingly: Yes - Disposition Anticipated Discharge: Home Within: within 24 hours
[2018-04-08] MEDS: MAGNESIUM SULFATE 1 GM/D5W 100 ML IV SCH ×2 (10:56→12:16)
--- NOTE | 2018-04-08 12:36 | PDOC PROGRESS REPORT ---
Subjective Progress Note for:: 04/08/18 Subjective:: AMANDA WRIGHT is a 27 year old 1 para 1 AB 0 white female who was taken to surgery for the delivery of her infant son via section due to macrosomia at 40-2/7 weeks gestation. During her surgical course she was noted to have frequent PVCs by the coil connector repairer and the obstetric surgeon. Due to the aberrance of the arrhythmia a consultation was sought with the hospitalist service to evaluate the patient for any necessary treatment or intervention. Amanda did not experience any symptoms of palpitations, dizziness, syncope, lightheadedness, generalized weakness or mental confusion during the recent weeks for that matter at any time in her life. Her past medical history is positive only for asthma as a child and her family medical history is essentially negative and noncontributory. Amanda has been completely unaffected during her postoperative phase and is very happily breast-feeding and playing with her baby at the time of my evaluation. 04/08/18: Amanda is rooming in with her son her is present at the time of my exam. She was happy to hear the results of her multiple tests showing no evidence of significant cardiac disease or other metabolic or functional deficiencies. I detailed to her that her EKGs as well as the cardiac enzymes were negative for any cardiac problems and that her other tests were essentially normal with the exception of a mildly depressed magnesium which will be corrected today by giving her a magnesium supplement IV for a total of 16 mEq or 2 g. I reassured her that this is safe for her and her and this would correct her magnesium deficiency such that no further treatment will be needed. Her examination is essentially unchanged from her basically normal examination yesterday and as such I will sign off of the case today we will happily return if at any point hospitalist services are needed. Reason For Visit: IUP 40.2 ADMIT FOR SECTION,MACROSOMIA Physical Exam Vital Signs: Temp Pulse Resp BP Pulse Ox 98.0 F 88 15 115/66 99 04/08/18 11:44 04/08/18 11:44 04/08/18 11:44 04/08/18 11:44 04/08/18 11:44 Intake & Output 04/07/18 04/08/18 04/09/18 06:59 06:59 06:59 Intake Total 1471 440 Output Total 500 Balance 971 440 Weight 116.1 kg General appearance: PRESENT: no acute distress, cooperative Head exam: PRESENT: atraumatic, normocephalic Eye exam: PRESENT: conjunctiva pink, EOMI. ABSENT: conjunctival injection, nystagmus, periorbital swelling, scleral icterus Ear exam: PRESENT: normal external ear exam. ABSENT: bleeding, drainage Mouth exam: PRESENT: moist, tongue midline Neck exam: ABSENT: thyromegaly, tracheal deviation Respiratory exam: PRESENT: clear to auscultation kallie, symmetrical, unlabored - [id number] Cardiovascular exam: PRESENT: RRR. ABSENT: clicks, gallop, rubs Vascular exam: PRESENT: normal capillary refill. ABSENT: pallor GI/Abdominal exam: PRESENT: normal bowel sounds, soft, tenderness - Moderate incisional tenderness noted Rectal exam: PRESENT: deferred Extremities exam: ABSENT: joint swelling, pedal edema Musculoskeletal exam: PRESENT: full ROM, normal inspection Neurological exam: PRESENT: alert, oriented to person, oriented to place, oriented to time, oriented to situation, CN II-XII grossly intact, normal gait. ABSENT: motor sensory deficit Psychiatric exam: PRESENT: appropriate affect, normal mood Skin exam: PRESENT: other - Moderate facial melasma persists.. ABSENT: jaundice , rash, urticaria Results Laboratory Results: 04/08/18 07:01 04/08/18 07:01 04/07/18 04/07/18 04/07/18 11:13 11:45 18:33 WBC RBC Hgb Hct MCV MCH MCHC RDW Plt Count Sodium Potassium Chloride Carbon Dioxide Anion Gap BUN Creatinine Est GFR ( Amer) Est GFR (Non-Af Amer) Glucose Calcium Magnesium Total Bilirubin AST ALT Alkaline Phosphatase Total Protein Albumin TSH 1.21 Urine Color YELLOW Urine Appearance TURBID Urine pH 5.0 Ur Specific [place] 1.027 Urine Protein 30 H Urine Glucose (UA) NEGATIVE Urine Ketones 20 H Urine Blood NEGATIVE Urine Nitrite NEGATIVE Ur Leukocyte Esterase LARGE H Urine WBC (Auto) 38 Urine RBC (Auto) 2 Blood Type A NEGATIVE Antibody Screen NEGATIVE 04/07/18 04/07/18 04/08/18 18:33 18:33 07:01 WBC 13.0 H 12.0 H RBC 3.80 3.47 L Hgb 10.8 L 9.9 L Hct 31.6 L 28.9 L MCV 83 83 MCH 28.4 28.4 MCHC 34.1 34.2 RDW 14.6 H 14.2 H Plt Count 240 192 Sodium 135.1 L Potassium 4.0 Chloride 105 Carbon Dioxide 24 Anion Gap 6 BUN 10 Creatinine 0.51 L Est GFR ( Amer) > 60 Est GFR (Non-Af Amer) > 60 Glucose 75 Calcium 8.7 Magnesium 1.5 L Total Bilirubin AST ALT Alkaline Phosphatase Total Protein Albumin TSH Urine Color Urine Appearance Urine pH Ur Specific [place] Urine Protein Urine Glucose (UA) Urine Ketones Urine Blood Urine Nitrite Ur Leukocyte Esterase Urine WBC (Auto) Urine RBC (Auto) Blood Type Antibody Screen 04/08/18 04/08/18 07:01 08:14 WBC RBC Hgb Hct MCV MCH MCHC RDW Plt Count Sodium 136.3 L Potassium 3.9 Chloride 108 H Carbon Dioxide 23 Anion Gap 5 BUN 8 Creatinine 0.52 Est GFR ( Amer) > 60 Est GFR (Non-Af Amer) > 60 Glucose 105 Calcium 8.5 Magnesium 1.6 Total Bilirubin 0.5 AST 26 ALT 40 Alkaline Phosphatase 107 Total Protein 4.7 L Albumin 2.4 L TSH Urine Color Urine Appearance Urine pH Ur Specific [place] Urine Protein Urine Glucose (UA) Urine Ketones Urine Blood Urine Nitrite Ur Leukocyte Esterase Urine WBC (Auto) Urine RBC (Auto) Blood Type A NEGATIVE Antibody Screen 04/07/18 04/07/18 04/08/18 19:12 19:12 01:00 Creatine Kinase 120 76 CK-MB (CK-2) 0.92 Troponin I < 0.012 04/08/18 04/08/18 04/08/18 01:00 07:01 07:01 Creatine Kinase 80 CK-MB (CK-2) 0.97 1.03 Troponin I < 0.012 < 0.012 EKG Comments: EKG demonstrates normal sinus rhythm. Assessment & Plan - Diagnosis (1) Ventricular premature beats seen on surveillance monitor Is this a current diagnosis for this admission?: Yes Plan: Patient's EKG is currently showing normal sinus rhythm. An acute arrhythmia evaluation will be performed. This will include multiple laboratory evaluations as well as overnight cardiac monitoring on telemetry and EKG which is already been obtained by Dr. Olson. Further evaluation will be provided as appropriate and I will follow-up with patient tomorrow to report all findings. Findings have been reported and I will sign off case. We will happily return if there is any need for hospitalist services. (2) Delivery by section of full-term Is this a current diagnosis for this admission?: Yes Plan: Dr. Olson will provide her most excellent postoperative/ care throughout the hospital course. - Time Time Spent with patient: 25-34 minutes Anticipated discharge: Home
[2018-04-08] MEDS: IBUPROFEN 800 MG TABLET PO SCH ×2 (18:34→23:15)
[2018-04-09] MEDS: IBUPROFEN 800 MG TABLET PO SCH ×3 (05:53→17:12)
[2018-04-09] MEDS: OXYCODONE-ACETAMINOPHEN 5-325 MG TABLET PO PRN ×3 (08:52→17:12)
[2018-04-09] MEDS: PRENATAL VITAMIN W DHA CAPSULE PO SCH (09:00)
[2018-04-09] MEDS: DOCUSATE SODIUM 100 MG CAPSULE PO SCH (09:01)
--- NOTE | 2018-04-09 09:40 | PDOC DISCHARGE SUMMARY ---
Final Diagnosis Discharge Date: 04/09/18 - Final Diagnosis (1) Delivery by section of full-term Is this a current diagnosis for this admission?: Yes (2) Macrosomia affecting management of mother Is this a current diagnosis for this admission?: Yes Discharge Data - Discharge Medication Home Medications: Vit/Dha [ Multi + Dha Capsule] 1 cap PO DAILY capsule Docosahexanoic Acid [Dha] 1 cap PO DAILY 04/07/18 Reason(s) for Admission: Ceasarean Section-Primary, Obstetric Complications Intrapartum Procedure(s): : Low Cervical, Transverse - Diagnosis Test Laboratory: Temp Pulse Resp BP Pulse Ox 98.5 F 81 17 114/60 98 04/09/18 03:32 04/09/18 03:32 04/09/18 03:32 04/09/18 03:32 04/09/18 03:32 04/07/18 04/07/18 04/07/18 11:13 11:45 18:33 RBC 4.05 3.80 Hgb 11.4 L 10.8 L Hct 33.4 L 31.6 L Urine Opiates Screen NEGATIVE 04/08/18 07:01 RBC 3.47 L Hgb 9.9 L Hct 28.9 L Urine Opiates Screen - Discharge information/Instructions Discharge Activity: Balance Activity w/Rest, No Lifting Over 10 Pounds, No Lifting/Push/Pulling, Pelvic Rest, No tub bath Discharge Diet: Regular Disposition: HOME, SELF-CARE Follow up with: [facility] in: 5, Weeks
[2018-04-09 17:01] VITALS: BP 113/65
[2018-04-09] MEDS ORDERED: FERROUS SULFATE 325 MG TABLET PO SCH (18:00)
== END 2018-04-09 17:38 | disposition home or self-care (01) | DRG 788 ==
LOC: LC 11:03 → LR 11:09 → 2N 20:00
PROVIDERS: ADMIT Student in an Organized Health Care Education/Training Program; ATTEND Student in an Organized Health Care Education/Training Program
PROC: 10D00Z1 Extraction of Products of Conception, Low, Open Approach (ICD-10-PCS; principal; 2018-04-07)
PROC: 4A1HXCZ Monitoring of Products of Conception, Cardiac Rate, External Approach (ICD-10-PCS; 2018-04-07)
PROC: 3E0234Z Introduction of Serum, Toxoid and Vaccine into Muscle, Percutaneous Approach (ICD-10-PCS; 2018-04-07)
DX: O66.2 Obstructed labor due to unusually large fetus (principal); O62.1 Secondary uterine inertia; O75.4 Other complications of obstetric surgery and procedures; I49.3 Ventricular premature depolarization; O26.893 Other specified pregnancy related conditions, third trimester; Z67.41 Type O blood, Rh negative; Z3A.40 40 weeks gestation of pregnancy; Z37.0 Single live birth
CPT/HCPCS: 1961; 36415; 80048; 80053; 80307; 81001; 81005; 82550; 82553; 83735; 84443; 84484; 85025; 85027; 85461; 86592; 86850; 86900; 86901; 93005; 93010; 94799; J0131; J0690; J1170; J1885; J2250; J2370; J2590; J2704; J2790; J3010; J3475; J3490